=== PATIENT | female | born 1995 | race African-American/Black ===

== ENCOUNTER 2018-10-09 06:37 | Emergency (ER) | payer OTHER ==
[~2018-10-09 06:37] MED LIST: ASCO10007 PO; CALC-1038 PO; VENL75CA55 PO
[2018-10-09] MEDS ORDERED: IPRATROPIUM/ALBUTEROL SULFATE 3 ML SOLUTION IH ONE (07:32)
[2018-10-09 07:40] LABS: BASOPHILS % (AUTO) 0.9 % (0.0-5.0); EOSINOPHILS % (AUTO) 2.3 % (0.0-8.0); HEMATOCRIT 36.7 % (36-48); LYMPHOCYTES % (AUTO) 29.5 % (21.0-51.0); MEAN CORPUSCULAR HEMOGLOBIN 33.6 pg (27.0-33.0); MEAN CORPUSCULAR HGB CONC 33.9 g/dL (32.0-36.0); MEAN CORPUSCULAR VOLUME 98.9 fL (79-99); MONOCYTES % (AUTO) 6.2 % (3.0-13.0); NEUTROPHILS % (AUTO) 61.1 % (40.0-77.0); NUCLEATED RED BLOOD CELLS 0.1 % (0.0-0.19); PLATELET COUNT (AUTO) 277 K/uL (130-400); RED BLOOD CELL COUNT(AUTO) 3.71 MIL/uL (4.00-5.50); RED CELL DISTRIBUTION WIDTH 12.8 % (11.0-15.5); WHITE BLOOD COUNT (AUTO) 7.7 K/uL (4.8-10.8)
[2018-10-09] MEDS ORDERED: MORPHINE SULFATE 4 MG/1ML SYG ONE (07:41)
[2018-10-09] MEDS ORDERED: ONDANSETRON HCL 4 MG/2 ML VIAL ONE (07:41)
[2018-10-09] MEDS ORDERED: SODIUM CHLORIDE 0.9% 1000ML 1,000 ML IV ONE (07:41)
[2018-10-09 07:49] LABS: CREATININE 0.8 mg/dL (0.5-1.5); POTASSIUM 3.6 mmol/L (3.5-5.1)
== END 2018-10-09 09:50 | disposition home or self-care (01) ==
LOC: EDH 06:37
DX: J45.21 Mild intermittent asthma with (acute) exacerbation (principal); E86.0 Dehydration; G89.18 Other acute postprocedural pain; K29.70 Gastritis, unspecified, without bleeding; F32.9 Major depressive disorder, single episode, unspecified; Z90.89 Acquired absence of other organs; Z98.890 Other specified postprocedural states
CPT/HCPCS: 36415; 80048; 81025; 85025; 93005; 94640; 96361; 96374; 96375; 99284; J2270; J2405; J7030

== ENCOUNTER 2018-12-05 21:40 | Emergency (ER) | payer MEDICAID, OTHER ==
[2018-12-05] MEDS ORDERED: SODIUM CHLORIDE 0.9% 1000ML 1,000 ML IV ONE (22:21)
[2018-12-05] MEDS ORDERED: ONDANSETRON HCL 4 MG/2 ML VIAL ONE (22:21)
[2018-12-05 22:25] LABS: BASOPHILS % (AUTO) 0.4 % (0.0-5.0); EOSINOPHILS % (AUTO) 1.4 % (0.0-8.0); HEMATOCRIT 39.1 % (36-48); LYMPHOCYTES % (AUTO) 21.9 % (21.0-51.0); MEAN CORPUSCULAR HEMOGLOBIN 34.5 pg (27.0-33.0); MEAN CORPUSCULAR HGB CONC 35.1 g/dL (32.0-36.0); MEAN CORPUSCULAR VOLUME 98.2 fL (79-99); MONOCYTES % (AUTO) 5.8 % (3.0-13.0); NEUTROPHILS % (AUTO) 70.5 % (40.0-77.0); PLATELET COUNT (AUTO) 283 K/uL (130-400); RED BLOOD CELL COUNT(AUTO) 3.98 MIL/uL (4.00-5.50); RED CELL DISTRIBUTION WIDTH 13.6 % (11.0-15.5); WHITE BLOOD COUNT (AUTO) 10.3 K/uL (4.8-10.8)
[2018-12-05 22:38] LABS: CREATININE 0.5 mg/dL (0.5-1.5)
[2018-12-05 23:04] LABS: ALBUMIN 3.5 g/dL (3.5-5.0); BILIRUBIN,TOTAL 0.5 mg/dL (0.2-1.0); TOTAL PROTEIN, SERUM 7.6 g/dL (6.0-8.3)
== END 2018-12-05 23:43 | disposition home or self-care (01) ==
LOC: EDH 21:40
DX: O21.0 Mild hyperemesis gravidarum (principal); J45.909 Unspecified asthma, uncomplicated; F32.9 Major depressive disorder, single episode, unspecified; F41.9 Anxiety disorder, unspecified; Z88.6 Allergy status to analgesic agent; Z98.890 Other specified postprocedural states; Z3A.09 9 weeks gestation of pregnancy
CPT/HCPCS: 36415; 80053; 84702; 85025; 96361; 96374; 99283; J2405; J7030

== ENCOUNTER 2019-01-04 00:46 | Emergency (ER) | payer MEDICAID | END 2019-01-04 01:47 | disposition left against medical advice (07) | LOC: EDH 00:46 ==

== ENCOUNTER 2019-04-13 23:40 | Observation (INO) | payer BC, MEDICAID ==
[~2019-04-13] VITALS: Ht 154.9 cm; Wt 94.3 kg
[2019-04-14 00:11] LABS: APPEARANCE,URINE Clear (CLEAR); BILIRUBIN,URINE Negative (NEGATIVE); COLOR,URINE Yellow (YELLOW); GLUCOSE, URINE (UA) Negative (NEGATIVE); KETONES,URINE Negative (NEGATIVE); LEUKOCYTE ESTERASE ,URINE Negative (NEGATIVE); NITRATE,URINE Negative (NEGATIVE); OCCULT BLOOD,URINE Trace (NEGATIVE); PH,URINE 7.5 (5.0-8.0); PROTEIN,URINE Negative (NEGATIVE); UROBILINOGEN,URINE 0.2 mg/dL (0.2-1.0)
[2019-04-14 00:21] LABS: AMPHET/METH SCREEN,URINE NEGATIVE (NEGATIVE); BARBITURATE SCREEN, URINE NEGATIVE (NEGATIVE); BENZODIAZEPINES SCREEN,URINE NEGATIVE (NEGATIVE); CANNABINOID SCREEN,URINE NEGATIVE (NEGATIVE); COCAINE SCREEN,URINE NEGATIVE (NEGATIVE); OPIATE SCREEN,URINE NEGATIVE (NEGATIVE); PHENCYCLIDINE SCREEN,URINE NEGATIVE (NEGATIVE)
[2019-04-14 00:23] LABS: BACTERIA,URINE None Seen /HPF (None Seen); RBC,URINE None Seen /HPF (0-1); SQUAMOUS EPITHELIAL CELL,UR Moderate /HPF (0-2); WBC,URINE None Seen /HPF (0-1)
== END 2019-04-14 01:40 | disposition home or self-care (01) ==
LOC: EDH 23:40 → LDH 23:41
PROVIDERS: ADMIT Obstetrics & Gynecology; ATTEND Obstetrics & Gynecology
DX: O26.892 Other specified pregnancy related conditions, second trimester (principal); R10.9 Unspecified abdominal pain; M54.9 Dorsalgia, unspecified; O99.89 Other specified diseases and conditions complicating pregnancy, childbirth and the puerperium; O99.512 Diseases of the respiratory system complicating pregnancy, second trimester; J45.909 Unspecified asthma, uncomplicated; O99.342 Other mental disorders complicating pregnancy, second trimester; F32.9 Major depressive disorder, single episode, unspecified; F41.9 Anxiety disorder, unspecified; Z87.891 Personal history of nicotine dependence; Z3A.27 27 weeks gestation of pregnancy; Z88.6 Allergy status to analgesic agent
CPT/HCPCS: 80305; 81001; 99284; G0378 ×2

== ENCOUNTER 2019-04-26 14:40 | Emergency (ER) | payer BC, MEDICAID ==
[2019-04-26 15:20] LABS: BASOPHILS % (AUTO) 0.6 % (0.0-5.0); EOSINOPHILS % (AUTO) 1.9 % (0.0-8.0); HEMATOCRIT 36.3 % (36-48); LYMPHOCYTES % (AUTO) 19.5 % (21.0-51.0); MEAN CORPUSCULAR HEMOGLOBIN 34.4 pg (27.0-33.0); MEAN CORPUSCULAR HGB CONC 34.5 g/dL (32.0-36.0); MEAN CORPUSCULAR VOLUME 99.5 fL (79-99); MONOCYTES % (AUTO) 7.6 % (3.0-13.0); NEUTROPHILS % (AUTO) 70.4 % (40.0-77.0); PLATELET COUNT (AUTO) 195 K/uL (130-400); RED BLOOD CELL COUNT(AUTO) 3.65 MIL/uL (4.00-5.50); RED CELL DISTRIBUTION WIDTH 14.2 % (11.0-15.5); WHITE BLOOD COUNT (AUTO) 7.2 K/uL (4.8-10.8)
[2019-04-26 15:30] LABS: CREATININE 0.6 mg/dL (0.5-1.5); POTASSIUM 4.1 mmol/L (3.5-5.1)
[2019-04-26 15:34] LABS: ALBUMIN 2.9 g/dL (3.5-5.0); BILIRUBIN,TOTAL 0.4 mg/dL (0.2-1.0); TOTAL PROTEIN, SERUM 6.5 g/dL (6.0-8.3)
[2019-04-26 16:06] LABS: INR 0.93 (0.85-1.15); PARTIAL THROMBOPLASTIN TIME 27.3 SEC (26.3-35.5); PROTHROMBIN TIME 9.8 SEC (9.6-11.6)
== END 2019-04-26 19:36 | disposition home or self-care (01) ==
LOC: EDH 14:40
DX: O26.893 Other specified pregnancy related conditions, third trimester (principal); R00.2 Palpitations; R55 Syncope and collapse; F41.9 Anxiety disorder, unspecified; J45.909 Unspecified asthma, uncomplicated; F32.9 Major depressive disorder, single episode, unspecified; Z88.6 Allergy status to analgesic agent; Z3A.29 29 weeks gestation of pregnancy
CPT/HCPCS: 36415; 80053; 82550; 83735; 84484; 85025; 85610; 85730; 93005

== ENCOUNTER 2019-05-02 03:21 | Observation (INO) | payer BC, MEDICAID ==
[~2019-05-02] VITALS: Ht 154.9 cm; Wt 93.0 kg
[2019-05-02 04:29] LABS: APPEARANCE,URINE Clear (CLEAR); BILIRUBIN,URINE Negative (NEGATIVE); COLOR,URINE Yellow (YELLOW); GLUCOSE, URINE (UA) Negative (NEGATIVE); KETONES,URINE Trace mg/dL (NEGATIVE); LEUKOCYTE ESTERASE ,URINE Negative (NEGATIVE); NITRATE,URINE Negative (NEGATIVE); OCCULT BLOOD,URINE Small (NEGATIVE); PH,URINE 6.5 (5.0-8.0); PROTEIN,URINE Negative (NEGATIVE); UROBILINOGEN,URINE 0.2 mg/dL (0.2-1.0)
[2019-05-02 04:43] LABS: BACTERIA,URINE None Seen /HPF (None Seen); RBC,URINE 0-1 /HPF (0-1); WBC,URINE None Seen /HPF (0-1)
== END 2019-05-02 05:10 | disposition home or self-care (01) ==
LOC: EDH 03:21 → LDH 03:22
PROVIDERS: ADMIT Obstetrics & Gynecology; ATTEND Obstetrics & Gynecology
DX: O26.893 Other specified pregnancy related conditions, third trimester (principal); R10.31 Right lower quadrant pain; O99.513 Diseases of the respiratory system complicating pregnancy, third trimester; J45.909 Unspecified asthma, uncomplicated; O99.343 Other mental disorders complicating pregnancy, third trimester; F32.9 Major depressive disorder, single episode, unspecified; Z87.891 Personal history of nicotine dependence
CPT/HCPCS: 81001; 99283; G0378 ×2

== ENCOUNTER 2019-06-21 20:30 | Observation (INO) | payer BC, MEDICAID ==
[~2019-06-21] VITALS: Ht 154.9 cm; Wt 96.2 kg
[2019-06-21] MEDS ORDERED: PREN-196 PO (20:37)
[2019-06-21] MEDS ORDERED: CETI10CA5 PO (20:37)
[2019-06-21 20:59] LABS: APPEARANCE,URINE Cloudy (CLEAR); BILIRUBIN,URINE Negative (NEGATIVE); COLOR,URINE Yellow (YELLOW); GLUCOSE, URINE (UA) Negative (NEGATIVE); KETONES,URINE Negative (NEGATIVE); LEUKOCYTE ESTERASE ,URINE Negative (NEGATIVE); NITRATE,URINE Negative (NEGATIVE); OCCULT BLOOD,URINE Trace (NEGATIVE); PROTEIN,URINE Negative (NEGATIVE)
[2019-06-21 21:07] LABS: AMPHET/METH SCREEN,URINE NEGATIVE (NEGATIVE); BARBITURATE SCREEN, URINE NEGATIVE (NEGATIVE); BENZODIAZEPINES SCREEN,URINE NEGATIVE (NEGATIVE); CANNABINOID SCREEN,URINE NEGATIVE (NEGATIVE); COCAINE SCREEN,URINE NEGATIVE (NEGATIVE); OPIATE SCREEN,URINE NEGATIVE (NEGATIVE); PHENCYCLIDINE SCREEN,URINE NEGATIVE (NEGATIVE)
[2019-06-21 21:10] LABS: BACTERIA,URINE Few /HPF (None Seen); WBC,URINE 0-1 /HPF (0-1)
[2019-06-21 21:11] LABS: MUCUS,URINE Few LPF (None Seen)
== END 2019-06-21 22:50 | disposition home or self-care (01) ==
LOC: LDH 20:30
PROVIDERS: ADMIT Obstetrics & Gynecology; ATTEND Obstetrics & Gynecology
DX: O36.8130 Decreased fetal movements, third trimester, not applicable or unspecified (principal); O99.513 Diseases of the respiratory system complicating pregnancy, third trimester; J45.909 Unspecified asthma, uncomplicated; O99.343 Other mental disorders complicating pregnancy, third trimester; F32.9 Major depressive disorder, single episode, unspecified; Z87.891 Personal history of nicotine dependence; Z3A.37 37 weeks gestation of pregnancy; Z79.899 Other long term (current) drug therapy
CPT/HCPCS: 59025; 76805; 76819; 80305; 81001; G0378 ×2

== ENCOUNTER 2019-10-12 04:24 | Emergency (ER) | payer BC, MEDICAID ==
[~2019-10-12 04:24] MED LIST changes: +CETI10CA5 PO; +PREN-196 PO
== END 2019-10-12 07:00 | disposition left against medical advice (07) ==
LOC: EDH 04:24
DX: Z53.21 Procedure and treatment not carried out due to patient leaving prior to being seen by health care provider (principal)
CPT/HCPCS: 96372

== ENCOUNTER 2020-06-04 08:44 | Inpatient (IN) | payer BC ==
[~2020-06-04] VITALS: Ht 154.9 cm; Wt 95.3 kg
[~2020-06-04 08:44] MED LIST changes: +ASCO100031 PO; -ASCO10007 PO
[2020-06-04 09:09] LABS: BASOPHILS % (AUTO) 0.5 % (0.0-5.0); EOSINOPHILS % (AUTO) 0.9 % (0.0-8.0); HEMATOCRIT 38.9 % (36-48); LYMPHOCYTES % (AUTO) 19.1 % (21.0-51.0); MEAN CORPUSCULAR HEMOGLOBIN 33.4 pg (27.0-33.0); MEAN CORPUSCULAR HGB CONC 35.2 g/dL (32.0-36.0); MEAN CORPUSCULAR VOLUME 94.9 fL (79-99); MONOCYTES % (AUTO) 4.2 % (3.0-13.0); NEUTROPHILS % (AUTO) 75.1 % (40.0-77.0); PLATELET COUNT (AUTO) 307 K/uL (130-400); RED CELL DISTRIBUTION WIDTH 11.8 % (11.0-15.5)
[2020-06-04 09:23] LABS: ALBUMIN 3.8 g/dL (3.5-5.0); BILIRUBIN,DIRECT 0.7 mg/dL (0.0-0.3); BILIRUBIN,TOTAL 1.4 mg/dL (0.2-1.0); CREATININE 0.8 mg/dL (0.5-1.5); POTASSIUM 3.9 mmol/L (3.5-5.1); TOTAL PROTEIN, SERUM 7.5 g/dL (6.0-8.3)
[2020-06-04] MEDS ORDERED: MORPHINE SULFATE 4 MG/1ML SYG ONE (09:36)
[2020-06-04] MEDS ORDERED: ONDANSETRON HCL 4 MG/2 ML VIAL ONE (09:36)
[2020-06-04 10:32] LABS: APPEARANCE,URINE Clear (CLEAR); BILIRUBIN,URINE Negative (NEGATIVE); COLOR,URINE Yellow (YELLOW); GLUCOSE, URINE (UA) Negative (NEGATIVE); KETONES,URINE Negative (NEGATIVE); LEUKOCYTE ESTERASE ,URINE Negative (NEGATIVE); NITRATE,URINE Negative (NEGATIVE); OCCULT BLOOD,URINE Small (NEGATIVE); PROTEIN,URINE Negative (NEGATIVE); UROBILINOGEN,URINE 0.2 mg/dL (0.2-1.0)
[2020-06-04 10:38] LABS: BACTERIA,URINE Rare /HPF (None Seen); SQUAMOUS EPITHELIAL CELL,UR Few /HPF (0-2); WBC,URINE None Seen /HPF (0-1)
[2020-06-04 10:39] LABS: AMPHET/METH SCREEN,URINE NEGATIVE (NEGATIVE); BARBITURATE SCREEN, URINE NEGATIVE (NEGATIVE); BENZODIAZEPINES SCREEN,URINE NEGATIVE (NEGATIVE); CANNABINOID SCREEN,URINE NEGATIVE (NEGATIVE); COCAINE SCREEN,URINE NEGATIVE (NEGATIVE); OPIATE SCREEN,URINE NEGATIVE (NEGATIVE); PHENCYCLIDINE SCREEN,URINE NEGATIVE (NEGATIVE)
[2020-06-04 10:41] LABS: HCG,QUAL RESULT NEGATIVE (NEGATIVE)
[2020-06-04] MEDS ORDERED: MEPERIDINE-PF 25 MG/ML SYG IV PRN (11:45)
[2020-06-04] MEDS ORDERED: ALBUTEROL INHALER 90MCG/INH IH PRN (12:00)
[2020-06-04] MEDS ORDERED: MAGNESIUM CITRATE 296 ML SOLUTION PO PRN (12:00)
[2020-06-04] MEDS ORDERED: ONDANSETRON HCL 4 MG/2 ML VIAL IVP PRN (12:00)
[2020-06-04 13:35] VITALS: BP 131/98
[2020-06-04 16:14] VITALS: BP 125/68
[2020-06-04] MEDS: INSULIN HUMULIN R 100 UNIT/ML 3ML SQ SCH ×2 (16:30→21:00)
[2020-06-04] MEDS: SODIUM CHLORIDE 0.9% 1000ML 1,000 ML IV SCH (17:01)
[2020-06-04 19:00] VITALS: BP 115/69
[2020-06-04 22:11] LABS: ALBUMIN 3.2 g/dL (3.5-5.0); BILIRUBIN,DIRECT 0.6 mg/dL (0.0-0.3); TOTAL PROTEIN, SERUM 6.5 g/dL (6.0-8.3)
[2020-06-05] VITALS (26 sets, daily range): BP systolic 100–139; BP diastolic 53–91
[2020-06-05] MEDS: SODIUM CHLORIDE 0.9% 1000ML 1,000 ML IV SCH ×4 (05:52→23:06)
[2020-06-05 06:26] LABS: BASOPHILS % (AUTO) 0.5 % (0.0-5.0); EOSINOPHILS % (AUTO) 3.7 % (0.0-8.0); HEMATOCRIT 35.6 % (36-48); MEAN CORPUSCULAR HEMOGLOBIN 33.7 pg (27.0-33.0); MEAN CORPUSCULAR HGB CONC 34.8 g/dL (32.0-36.0); MEAN CORPUSCULAR VOLUME 96.7 fL (79-99); MONOCYTES % (AUTO) 5.5 % (3.0-13.0); NEUTROPHILS % (AUTO) 47.1 % (40.0-77.0); PLATELET COUNT (AUTO) 279 K/uL (130-400); RED BLOOD CELL COUNT(AUTO) 3.68 MIL/uL (4.00-5.50); WHITE BLOOD COUNT (AUTO) 5.7 K/uL (4.8-10.8)
[2020-06-05] MEDS: INSULIN HUMULIN R 100 UNIT/ML 3ML SQ SCH ×4 (07:30→20:19)
[2020-06-05] MEDS ORDERED: BUPIVACAINE/PF 0.5% 30ML VIAL ONE (07:38)
[2020-06-05] MEDS ORDERED: CEFAZOLIN SODIUM 1 GM VIAL ONE (07:41)
[2020-06-05] MEDS ORDERED: SUCCINYLCHOLINE CHLORIDE 20 MG/ML 10 ML VIAL ONE (07:43)
[2020-06-05] MEDS ORDERED: PROPOFOL 10 MG/ML 20ML VIAL IV ONE (07:43)
[2020-06-05] MEDS ORDERED: ROCURONIUM 10MG/1ML SYR 10 MG/ML ML ONE (07:43)
[2020-06-05] MEDS ORDERED: ONDANSETRON HCL 4 MG/2 ML VIAL ONE ×2 (07:43→09:50)
[2020-06-05] MEDS ORDERED: LIDOCAINE PF 2% 5ML ABBOJECT ONE (07:43)
[2020-06-05] MEDS ORDERED: MIDAZOLAM HCL 1 MG/ML 2ML VIAL ONE (07:43)
[2020-06-05] MEDS ORDERED: FENTANYL CITRATE PF 50 MCG/1 ML 2ML VIAL ONE ×2 (07:46→08:02)
[2020-06-05 08:02] LABS: ALBUMIN 3.1 g/dL (3.5-5.0); BILIRUBIN,TOTAL 1.8 mg/dL (0.2-1.0); CREATININE 0.8 mg/dL (0.5-1.5); POTASSIUM 3.7 mmol/L (3.5-5.1); TOTAL PROTEIN, SERUM 6.3 g/dL (6.0-8.3)
[2020-06-05] MEDS ORDERED: NEOSTIGMINE 5MG/5ML SYR IV ONE (08:41)
[2020-06-05] MEDS ORDERED: GLYCOPYRROLATE 1 MG/5 ML SYRINGE ONE (08:41)
[2020-06-05] MEDS ORDERED: MEPERIDINE-PF 25 MG/ML SYG ONE ×3 (08:43→09:24)
[2020-06-05] MEDS ORDERED: ESMOLOL HCL 10 MG/ML 10 ML VIAL ONE (08:49)
--- NOTE | 2020-06-05 10:12 | NUR ---
Surgical Patient Patient returned from surgery, [id number], Pain rated at 8, 3 surgical sites to right upper abdomen and 1 at umbilicus area that has bloody drainage, VS stable
[2020-06-05] MEDS ORDERED: KETOROLAC TROMETHAMINE 15MG/ML IM PRN (11:15)
[2020-06-05] MEDS: MORPHINE SULFATE 2 MG/ML 1ML SYG IM PRN ×2 (11:35→15:50)
--- NOTE | 2020-06-05 11:53 | NUR ---
CM NOTE/IA UNSUCCESSFUL CALLED PATIENT'S ROOM,NO ANSWER. SPOUSE CALLED AT [phone], NO ANSWER AND UNABLE TO LEAVE VOICEMAIL. NEXT OF KIN CALLED, DENZEL GUADALUPE, NO ANSWER. PATIENT UNDER WENT [facility] THIS AM WITH POSS DC HOME TOMORROW IF STABLE. CM TO FOLLOW UP FOR IA INFORMATION. Addendum: 06/05/20 at 1155 by JOVITA PERSAUD RN CM Amended: Links added.
--- NOTE | 2020-06-05 14:59 | NUR ---
KAREN RUIZ/IA SPOUSE AND NEXT OF KIN, LYN CONTRERAS, CALLED BACK. PER SPOUSE, LIVES WITH HER AND HER 11 YR OLD BABY, INDEPENDENT WITH ADLS, HAS USE OF CANE SINCE HISTORY OF 2 HERNIATED DISCS, DRIVES, AND FEELS SAFE FOR PATIENT TO RETURN HOME ONCE DISCHARGED. Addendum: 06/05/20 at 1502 by JOVITA PERSAUD RN CM Amended: Links added.
[2020-06-05] MEDS: CEFTRIAXONE SODIUM 1 GM IVP SCH (15:00)
[2020-06-05] MEDS: HYDROCODONE/ACETAMINOPHEN 7.5/325 MG TAB PO PRN ×2 (16:28→23:16)
[2020-06-06] VITALS: BP 117/72
[2020-06-06] MEDS: CEFTRIAXONE SODIUM 1 GM IVP SCH (01:54)
[2020-06-06 04:00] VITALS: BP 133/77
[2020-06-06 04:20] LABS: BASOPHILS % (AUTO) 0.2 % (0.0-5.0); EOSINOPHILS % (AUTO) 0.7 % (0.0-8.0); HEMATOCRIT 34.9 % (36-48); MEAN CORPUSCULAR HEMOGLOBIN 33.6 pg (27.0-33.0); MEAN CORPUSCULAR VOLUME 96.1 fL (79-99); MONOCYTES % (AUTO) 5.5 % (3.0-13.0); NEUTROPHILS % (AUTO) 70.4 % (40.0-77.0); PLATELET COUNT (AUTO) 263 K/uL (130-400); RED BLOOD CELL COUNT(AUTO) 3.63 MIL/uL (4.00-5.50); RED CELL DISTRIBUTION WIDTH 11.9 % (11.0-15.5); WHITE BLOOD COUNT (AUTO) 8.9 K/uL (4.8-10.8)
[2020-06-06 04:30] LABS: CREATININE 0.7 mg/dL (0.5-1.5); POTASSIUM 3.4 mmol/L (3.5-5.1); TOTAL PROTEIN, SERUM 6.5 g/dL (6.0-8.3)
[2020-06-06] MEDS: INSULIN HUMULIN R 100 UNIT/ML 3ML SQ SCH ×2 (06:31→11:30)
[2020-06-06] MEDS ORDERED: POTASSIUM CHLORIDE 20 MEQ ERTAB PO SCH (07:45)
[2020-06-06 07:46] VITALS: BP 122/67
[2020-06-06] MEDS: HYDROCODONE/ACETAMINOPHEN 7.5/325 MG TAB PO PRN (08:49)
[2020-06-06 10:55] VITALS: BP 119/66
--- NOTE | 2020-06-06 12:55 | NUR ---
Discharge Patient INT was removed, and surgical dsg sites changed. Written and verbal discharge instructions given and patient acknowledged understanding.
== END 2020-06-06 13:00 | disposition home or self-care (01) | DRG 419 ==
LOC: EDH 08:44 → EDHIP 12:14 → 3AH 13:17
PROVIDERS: ADMIT Hospitalist; ATTEND Hospitalist
PROC: 0FT44ZZ Resection of Gallbladder, Percutaneous Endoscopic Approach (ICD-10-PCS; principal; 2020-06-05 08:12)
DX: K80.00 Calculus of gallbladder with acute cholecystitis without obstruction (principal); J45.909 Unspecified asthma, uncomplicated; F32.9 Major depressive disorder, single episode, unspecified; F41.9 Anxiety disorder, unspecified; K58.1 Irritable bowel syndrome with constipation; Z20.828 Contact with and (suspected) exposure to other viral communicable diseases; E66.01 Morbid (severe) obesity due to excess calories; Z68.39 Body mass index [BMI] 39.0-39.9, adult; Z88.6 Allergy status to analgesic agent; Z86.32 Personal history of gestational diabetes; Z82.5 Family history of asthma and other chronic lower respiratory diseases; Z82.49 Family history of ischemic heart disease and other diseases of the circulatory system
CPT/HCPCS: 36415; 76705; 80048; 80053; 80076; 80305; 81001; 81025; 82550; 82948; 83690; 84702; 85025; 87426; 93005; G0378; J0330; J0690; J0696; J1885; J2001; J2175; J2250; J2270; J2405; J2704; J2710; J3010; J3490; J7030; J7120